=== PATIENT | female | born 1970 | race Native Hawaiian/Other Pacific Islander ===

== ENCOUNTER 2017-09-25 08:35 | Emergency (ER) | payer MEDICAID ==
[2017-09-25 08:36] VITALS: BMI 23.1
[2017-09-25 08:42] VITALS: BP 122/8; PULSE 80; RESP 20; TEMP 97; O2SAT 100
[2017-09-25] MEDS ORDERED: Sodium Chloride 0.9% Inh Soln (3mL) UD INH ONE (09:27)
--- NOTE | 2017-09-25 09:27 | C.PDOC ---
History Of Present Illness SINUS CONGESTION X 1 WEEK, PLEURITIC CP DRY COUGH TODAY. NO FEVER. +SICK CONTACT W SAME. NO FEVER, NVD. NO SOB. NO RELIEF W MUCINEX, DAYQUIL EXAM NONTOXIC HEENT +SINUS ELIZABETH CLEAR RHINORRHEA LUNGS BRONCHIAL SOUNDS OCC; NO W/R/R SPEAKING FULL SENTENCES NO RETRACTION REMAINDER NEG Time Seen by Provider: 09/25/17 09:21 Chief Complaint (Nursing): Flu-like Symptoms History Per: Patient History/Exam Limitations: no limitations Onset/Duration Of Symptoms: Days (1 week) Sick Contacts (Context): Family Member(s) Associated Symptoms: denies: Fever, Nausea, Vomiting, Diarrhea Past Medical History Reviewed: Historical Data, Nursing Documentation, Vital Signs Vital Signs: Last Vital Signs Temp 97 F L 09/25/17 08:39 Pulse 80 09/25/17 08:39 Resp 20 09/25/17 08:39 BP 122/8 L 09/25/17 08:39 Pulse Ox 100 09/25/17 09:30 Family History: States: No Known Family Hx - Social History Hx Alcohol Use: No Hx Substance Use: No Review Of Systems Except As Marked, All Systems Reviewed And Found Negative. ENT: Positive for: Other ((+) sinus congestion) Cardiovascular: Positive for: Chest Pain (pleuritic) Respiratory: Positive for: Cough (dry). Negative for: Shortness of Breath Gastrointestinal: Negative for: Nausea, Vomiting, Diarrhea Neurological: Negative for: Headache Physical Exam - Physical Exam Appears: Non-toxic, No Acute Distress Skin: Warm, Dry, No Rash Nose: Discharge (clear rhinorrhea), Other ((+) sinus congestion) Oral Mucosa: Moist Lips: Normal Appearing Throat: Normal, No Erythema, No Exudate Cardiovascular: Rhythm Regular, No Murmur Respiratory: No Rales, No Rhonchi, No Wheezing, Other ((+) occasional bronchial sounds, speaking in full sentences (-) no retractions) Extremity: Normal ROM, No Swelling Neurological/Psych: Oriented x3, Normal Speech ED Course And Treatment O2 Sat by Pulse Oximetry: 100 (RA) Pulse Ox Interpretation: Normal Medical Decision Making Medical Decision Making: PLAN: * Sodium Chloride INH Disposition Counseled Patient/Family Regarding: Diagnosis, Need For Followup - Disposition Referrals: YOUR,PMD [Other] Disposition: HOME/ ROUTINE Disposition Time: 09:21 Condition: GOOD Additional Instructions: USE SUDAFED, AFRIN NASAL SPRAY DIRECTED. TYLENOL AND/OR MOTRIN DIRECTED FOR PAIN. Instructions: Upper Respiratory Infection (ED) Forms: [facility] (Turkmen) - Clinical Impression Clinical Impression: Upper respiratory infection, viral - Scribe Statement The provider has reviewed the documentation as recorded by the Scribe Janine Menezes Provider Attestation: All medical record entries made by the Scribe were at my direction and personally dictated by me. I have reviewed the chart and agree that the record accurately reflects my personal performance of the history, physical exam, medical decision making, and the department course for this patient. I have also personally directed, reviewed, and agree with the discharge instructions and disposition.
--- NOTE | 2017-09-27 14:44 | CARD ---
APPROVED REPORT EKG Measurement Heart [id number] <Conclusion> Normal sinus rhythm Possible Left atrial enlargement Borderline ECG
== END 2017-09-25 09:58 | disposition home or self-care (01) ==
LOC: C.ER 08:35
DX: J06.9 Acute upper respiratory infection, unspecified (principal); B34.9 Viral infection, unspecified

== ENCOUNTER 2018-08-17 14:35 | Emergency (ER) | payer MEDICAID ==
[2018-08-17 14:35] VITALS: BMI 23.1
[2018-08-17 14:56] VITALS: BP 136/85; PULSE 75; RESP 14; TEMP 97.5; O2SAT 99
--- NOTE | 2018-08-17 16:49 | C.PDOC ---
History Of Present Illness 48 year old female presents to the ED for evaluation of generalized body aches, fever, and chills which began two days ago. Patient also reports cough that is productive of thick green sputum. Patient has been taking Robitussin with transient relief. She also reports headache and nausea. She denies vomiting, diarrhea. HPI: Influenza Time Seen by Provider: 08/17/18 15:52 Chief Complaint: Cough, Cold, Congestion History Per: Patient Exam Limitations: no limitations Symptoms include: fever, headache, cough. denies: vomiting, diarrhea Past Medical History Reviewed: Historical Data, Nursing Documentation, Vital Signs Vital Signs: Last Vital Signs Temp 97.5 F L 08/17/18 14:52 Pulse 75 08/17/18 14:52 Resp 14 08/17/18 14:52 BP 136/85 08/17/18 14:52 Pulse Ox 99 08/17/18 14:52 - Medical History PMH: No Chronic Diseases Surgical History: No Surg Hx Family History: States: Unknown Family Hx - Social History Hx Alcohol Use: No Hx Substance Use: No - Immunization History Hx Influenza Vaccination: No Hx Pneumococcal Vaccination: No Review Of Systems Constitutional: Positive for: Fever, Chills Gastrointestinal: Positive for: Nausea. Negative for: Vomiting, Diarrhea Musculoskeletal: Positive for: Other (generalized body aches ) Neurological: Positive for: Headache Physical Exam - Physical Exam Appears: Non-toxic, No Acute Distress, Other (ill-appearing, lethargic ) Skin: Normal Color, Warm, Dry Head: Atraumatic, Normacephalic Eye(s): bilateral: Other (watery eyes ) Oral Mucosa: Moist Neck: Supple Chest: Symmetrical, No Deformity, No Tenderness Cardiovascular: Rhythm Regular, No Murmur Respiratory: Normal Breath Sounds, No Rales, No Rhonchi, No Wheezing Extremity: Normal ROM, Capillary Refill (less than 2 seconds ) Neurological/Psych: Oriented x3, Normal Speech, Normal Cognition - ECG O2 Sat by Pulse Oximetry: 99 Disposition Counseled Patient/Family Regarding: Diagnosis, Need For Followup, Rx Given - Disposition Disposition: HOME/ ROUTINE Disposition Time: 16:47 Condition: STABLE Prescriptions: Benzonatate [Tessalon Perle] 200 mg PO TID #30 capsule Ibuprofen [Motrin] 600 mg PO TID #30 tab Oseltamivir Phosphate [Tamiflu] 75 mg PO BID #10 capsule Instructions: Upper Respiratory Infection (ED) Forms: General Discharge Instructions, [facility] (Guatemalan), School Excuse - POA Present On Arrival: None - Clinical Impression Clinical Impression: Influenza-like illness - Scribe Statement The provider has reviewed the documentation as recorded by the Scribe (Karime Hodge) Provider Attestation: All medical record entries made by the Scribe were at my direction and personally dictated by me. I have reviewed the chart and agree that the record accurately reflects my personal performance of the history, physical exam, medical decision making, and the department course for this patient. I have also personally directed, reviewed, and agree with the discharge instructions and disposition.
== END 2018-08-17 17:16 | disposition home or self-care (01) ==
LOC: C.ER 14:35
DX: J11.1 Influenza due to unidentified influenza virus with other respiratory manifestations (principal)